=== PATIENT | female | born 1995 | race Caucasian/White ===

== ENCOUNTER → 2024-10-06 14:40 | Outpatient (REF) | payer OTHER, SELFPAY | LOC: PNTC 14:40 | PROVIDERS: ATTENDING PHYSICIAN Student in an Organized Health Care Education/Training Program | DX: Z36.0 Encounter for antenatal screening for chromosomal anomalies (principal); Z36.82 Encounter for antenatal screening for nuchal translucency | CPT/HCPCS: 76801; 76813 ==

== ENCOUNTER → 2024-12-01 13:07 | Outpatient (REF) | payer OTHER, SELFPAY | LOC: PNTC 13:07 | PROVIDERS: ATTENDING PHYSICIAN Student in an Organized Health Care Education/Training Program | DX: O09.819 Supervision of pregnancy resulting from assisted reproductive technology, unspecified trimester (principal) | CPT/HCPCS: 76811; 76817 ==

== ENCOUNTER → 2025-03-19 14:59 | Outpatient (REF) | payer OTHER, SELFPAY | LOC: PNTC 14:59 | PROVIDERS: ATTENDING PHYSICIAN Obstetrics & Gynecology | DX: O09.819 Supervision of pregnancy resulting from assisted reproductive technology, unspecified trimester (principal) | CPT/HCPCS: 59025 ==

== ENCOUNTER 2025-04-21 19:29 | Inpatient (IN) | payer OTHER, SELFPAY ==
[2025-04-21 19:38] VITALS: BMI 33.7
[2025-04-21 19:41] VITALS: BP 134/79
[2025-04-21] MEDS: CYTOTEC 25 MICROGRAM VAG (20:30)
[2025-04-21 20:35] LABS: Hematocrit 32.2 % (37.0-47.0); Hemoglobin 11.3 g/dL (12.0-16.0); Mean Corp Hgb Conc. 35.1 g/dL (33.0-37.0); Mean Corpuscular Volume 89.4 fL (81.0-99.0); Nucleated Red Blood Cells % 0 %; Platelet Count 160 10^3/uL (130-400); Red Cell Dist. Width 11.8 % (11.5-14.5)
[2025-04-21 22:41] LABS: ALT (SGPT) 13 U/L (0-35); AST (SGOT) 23 U/L (14-36); Albumin 3.2 g/dl (3.5-5.0); Alkaline Phosphatase 169 U/L (38-126); Blood Urea Nitrogen 8 mg/dl (7-17); Calcium 9.7 mg/dl (8.4-10.2); Carbon Dioxide 25 mmol/L (22-30); Estimated Creatinine Clearance > 125 ml/min; Glucose 99 mg/dl (70-99); Total Protein 5.6 g/dl (6.3-8.2); eGFR > 60.00
[2025-04-21 22:44] LABS: Chloride 106 mmol/L (98-107); Potassium 4.3 mmol/L (3.5-5.1); Sodium 135 mmol/L (135-145)
[2025-04-22] MEDS: CYTOTEC 50 MICROGRAM PO (00:31)
[2025-04-22] MEDS: CYTOTEC PO ×5 (06:05→21:00)
[2025-04-22] MEDS: LR 1000 IV ×3 (06:40→21:24)
[2025-04-22] MEDS: PENICILLIN 110 UNITS IV (10:03)
[2025-04-22] MEDS: TUMS CHEWABLE TABLET 400 MG PO ×2 (10:55→18:37)
[2025-04-22] MEDS: PENICILLIN 55 UNITS IV ×3 (13:47→21:59)
[2025-04-22] MEDS: SUBLIMAZE 100 MCG EPIDURAL (17:59)
[2025-04-22] MEDS: FENTANYL/BUPIVACAINE 100 EPIDURAL (18:03)
[2025-04-22] MEDS: PITOCIN 30 UNITS/NSS 500 ML IV (19:15)
[2025-04-23] MEDS: FENTANYL/BUPIVACAINE 100 EPIDURAL (01:39)
[2025-04-23] MEDS: PENICILLIN 55 UNITS IV (02:40)
[2025-04-23] MEDS: TYLENOL 975 MG PO (02:57)
[2025-04-23] MEDS: ANCEF 10 IV (02:58)
[2025-04-23] MEDS: BICITRA 30 ML PO (02:58)
[2025-04-23] MEDS: ZITHROMAX INFUSION 250 IV (02:58)
[2025-04-23] MEDS: PITOCIN 30 UNITS/NSS 500 ML IV (04:50)
[2025-04-23] MEDS: TRANEXAMIC ACID 100 IV (04:57)
[2025-04-23] MEDS: TORADOL IV (05:00)
[2025-04-23] MEDS: LR 1000 IV (05:00)
[2025-04-23] MEDS: NSS 500 IV ×2 (08:45→11:45)
[2025-04-23 10:08] LABS: Hematocrit 27.6 % (37.0-47.0); Hemoglobin 9.6 g/dL (12.0-16.0)
[2025-04-23] MEDS: TORADOL 15 MG IV ×3 (11:10→22:39)
[2025-04-23] MEDS: COLACE 100 MG PO ×2 (11:10→20:36)
[2025-04-23] MEDS: PRENATAL PLUS 1 TABLET PO (11:10)
[2025-04-23] MEDS: REGLAN 10 MG IV (14:05)
[2025-04-23] MEDS: TUMS CHEWABLE TABLET 400 MG PO (14:05)
[2025-04-24 06:19] LABS: Hematocrit 23.1 % (37.0-47.0); Hemoglobin 7.8 g/dL (12.0-16.0); Mean Corp Hgb Conc. 33.8 g/dL (33.0-37.0); Mean Corpuscular Volume 92.4 fL (81.0-99.0); Platelet Count 155 10^3/uL (130-400); Red Cell Dist. Width 12.1 % (11.5-14.5)
--- NOTE | 2025-04-24 07:55 | W.PN.ANS.POP ---
Anesthesia Post Operative
- Anesthesia Post Op Note
Vital Signs Stable-See Nursing Note: Yes
Airway Patent: Yes
Adequate Pain Control: Yes
Change in Mental Status: No
Current Postoperative Nausea & Vomiting: No
Anesthesia Complications: No
General Anesthetic Recall: No
Unplanned Admission: No
Post Op Hydration Adequate: Yes
[2025-04-24] MEDS: PRENATAL PLUS 1 TABLET PO (08:10)
[2025-04-24] MEDS: COLACE 100 MG PO ×2 (08:11→19:52)
[2025-04-24] MEDS: FEOSOL 325 MG PO ×2 (10:04→19:52)
[2025-04-24] MEDS: MOTRIN 600 MG PO ×3 (10:04→21:53)
[2025-04-24 12:46] LABS: Syphilis/T. pallidum Ab Reflex Negative (Negative)
[2025-04-24] MEDS: TYLENOL 650 MG PO (21:53)
[2025-04-25] MEDS: MOTRIN 600 MG PO ×3 (04:01→20:13)
[2025-04-25] MEDS: TYLENOL 650 MG PO ×3 (04:01→20:13)
[2025-04-25] MEDS: PRENATAL PLUS 1 TABLET PO (08:10)
[2025-04-25] MEDS: COLACE 100 MG PO ×2 (08:10→20:13)
[2025-04-25] MEDS: FEOSOL 325 MG PO ×2 (08:10→20:13)
[2025-04-26] MEDS: TUMS CHEWABLE TABLET 400 MG PO (01:26)
[2025-04-26] MEDS: TYLENOL 650 MG PO ×2 (05:02→10:51)
[2025-04-26] MEDS: MOTRIN 600 MG PO ×2 (05:03→10:51)
[2025-04-26] MEDS: PRENATAL PLUS 1 TABLET PO (08:25)
[2025-04-26] MEDS: FEOSOL 325 MG PO (08:25)
[2025-04-26] MEDS: COLACE 100 MG PO (08:25)
--- NOTE | 2025-04-26 11:14 | W.DS.TRANS ---
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
-
Discharge Instructions:
Discharge Diagnosis/Procedures section
Instructions:
Stand-Alone Forms: LDRP Delivery
Changes to Home Medications: No
Discharge Medications:
DC Medications w/original date entered in [facility]
[id number] 1 mg tablet 1 tab PO DAILY 04/21/25
acetaminophen 325 mg tablet 650 mg (2 x 325 mg) PO Q4HPRN PRN mild pain #0 tabs 04/25/25
calcium carbonate (Calcium Antacid) 400 mg (2 x 200 mg calcium (500 mg)) PO Q6HPRN PRN indigestion #0 tabs 04/25/25
docusate sodium 100 mg capsule 100 mg PO BID #0 caps 04/25/25
ferrous sulfate 325 mg (65 mg iron) tablet (FeroSul) 325 mg PO BID #0 tabs 04/25/25
ibuprofen 600 mg tablet 600 mg PO Q6HPRN PRN cramps #30 tabs 04/25/25
sennosides 8.6 mg tablet (Astrid-branden) 17.2 mg (2 x 8.6 mg) PO HSPRN PRN constipation #0 tabs 04/25/25
simethicone 80 mg chewable tablet 80 mg PO TIDPRN PRN flatulence #0 tabs 04/25/25
Home Medication Changes
Pending Results: No
Total time spent discharging patient (in min): 20
== END 2025-04-26 11:50 | disposition home or self-care (01) | DRG 787 ==
LOC: LDRP 19:29
PROVIDERS: Obstetrics & Gynecology; ADMITTING PHYSICIAN Obstetrics & Gynecology; ATTENDING PHYSICIAN Obstetrics & Gynecology
PROC: 10D00Z1 Extraction of Products of Conception, Low, Open Approach (ICD-10-PCS; 2025-04-23)
DX: O48.0 Post-term pregnancy (principal); D62 Acute posthemorrhagic anemia; Z3A.40 40 weeks gestation of pregnancy; Z37.0 Single live birth; D25.2 Subserosal leiomyoma of uterus; O69.81X0 Labor and delivery complicated by cord around neck, without compression, not applicable or unspecified; O77.0 Labor and delivery complicated by meconium in amniotic fluid; O32.8XX0 Maternal care for other malpresentation of fetus, not applicable or unspecified; O16.4 Unspecified maternal hypertension, complicating childbirth; O99.03 Anemia complicating the puerperium; O62.0 Primary inadequate contractions; O62.1 Secondary uterine inertia; O99.824 Streptococcus B carrier state complicating childbirth
CPT/HCPCS: 36415; 80053; 82570; 84156; 85014; 85018; 85025; 85027; 86780; 86850; 86900; 86901; 88307